=== PATIENT | female | born 1960 | race Caucasian/White ===

== ENCOUNTER → 2020-04-27 08:52 | Outpatient (CLI) | payer BC, SELFPAY ==
--- NOTE | ~2020-04-27 | MR_ITS ---
EXAMINATION: MR brain/brain stem wo/w con DATE: 04/27/2020 09:43 INDICATION: Headaches TECHNIQUE: Magnetic resonance imaging (MRI) of the brain and brainstem was performed . without and wi th 13 mL Multihance intravenous contrast. Sequences included sagittal and axial T1-weighted SE, axial diffusion-weighted FS SE, axial T2*-weighted GRE, axial T2-weighted FLAIR, and axial T2-weighted FSE . Postcontrast axial and coronal T1-weighted SE was obtained. Apparent diffusion coefficient (ADC) ma ps were created. COMPARISON: None. FINDINGS: There are no areas of restricted diffusion to suggest acute infarction. No intracranial hemorrhage or abnormal intracranial mass lesion. There are no intraparenchymal signal abnormalities seen on the ot her pulse sequences. The ventricles are symmetric and normal in size. There are no abnormal extra-axi al fluid collections. Flow voids are seen in the cerebral arteries on the T2-weighted sequences consi stent with their expected patency. The basilar and bilateral vertebral arteries appear diminutive and there appears be supply to the larger caliber bilateral posterior cerebral arteries via and artery a rising from the left internal carotid artery at the carotid siphon more proximal than the normal loca tion of the takeoff of the posterior communicating artery suggesting this could represent collateral flow via a residual trigeminal artery. Mild mucoperiosteal thickening in the bilateral ethmoid sinuse s. Changes of bilateral intraocular lens replacement. Visualized orbits and soft tissues are unremark able. There are no areas of abnormal enhancement on the post contrast images. IMPRESSION: 1. Normal brain. No acute intracranial process. 2. 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 Could consider CT angiogram for more definitive determination as clinically indicated. Reviewed, dictated and finalized at location A. R PRINT OPERATOR IMPRESSION: 1. Normal brain. No acute intracranial process. 2. Variant cerebral artery anatomy with diminutive basilar and bilateral verteb ral arteries with collateral supply to the posterior circulation appearing to o ccur via a likely residual left trigeminal artery. Could consider CT angiogram for more definitive determination as clinically indicated.
[2020-04-27 09:31] LABS: Estimated Glomerular Filt Rate > 60
== END ==
PROVIDERS: Visit Provider Nurse Practitioner Family
DX: R51.9 Headache, unspecified (principal)
CPT/HCPCS: 70553; A9577

== ENCOUNTER → 2020-05-25 11:54 | Outpatient (CLI) | payer BC, SELFPAY ==
--- NOTE | ~2020-05-25 | US_ITS ---
EXAMINATION: US carotid duplex BI DATE: 05/25/2020 12:24 INDICATION: Headaches. Diminutive vertebral and bilateral vertebral arteries on prior MRI. TECHNIQUE: Grayscale, color Doppler, and pulsed Doppler images of the cervical carotid arteries were obtained. The degree of vessel stenosis is placed in one of the following categories: normal, <50%, 5 0-69%, >=70% but less than near-occlusion, near-occlusion, or total occlusion. Note that percent sten osis relative to normal distal artery lumen diameter is indirectly measured from velocity measurement s as described by Cuong, et al. Radiology 2003; [id number]:[id number]. COMPARISON: None. FINDINGS: RIGHT: The right common carotid artery (CCA) peak systolic velocity (PSV) is 93 cm/s. The right internal car otid artery (ICA) PSV is 57 cm/s. The right ICA end-diastolic velocity (EDV) is 14 cm/s. The right IC A/CCA PSV ratio is 1.1. Grayscale and color Doppler images yield an estimate of <50% diameter reducti on from plaque in the ICA. The external carotid artery (ECA) PSV is 124 cm/s. There is antegrade flow in the right vertebral artery. LEFT: The left CCA PSV is 80 cm/s. The left ICA PSV is 103 cm/s. The left ICA EDV is 36 cm/s. The left ICA/ CCA PSV ratio is 1.4. Grayscale and color Doppler images yield an estimate of <50% diameter reduction from plaque in the ICA. The ECA PSV is 102 cm/s. There is antegrade flow in the left vertebral arter y. IMPRESSION: 1. <50% stenosis in the right internal carotid artery. 2. <50% stenosis in the left internal carotid artery. Reviewed, dictated and finalized at location B.
--- NOTE | ~2020-05-25 | MR_ITS ---
EXAMINATION: MR orbits face neck wo con DATE: 05/25/2020 12:50 INDICATION: Headache. TECHNIQUE: Magnetic resonance imaging (MRI) of the neck was performed without intravenous contrast. S equences included axial and coronal T1-weighted FSE and STIR FSE and sagittal T1-weighted FSE. COMPARISON: Brain MRI 04/27/2020 FINDINGS: There are no pathologically enlarged lymph nodes. The pharyngeal mucosal space is normal. T here is no abnormal mass. There is mild cervical spondylosis. IMPRESSION: 1. No etiology for the patient's symptoms. Reviewed, dictated and finalized at location A.
== END ==
PROVIDERS: PCP Pediatrics; Visit Provider Nurse Practitioner Family
DX: R51.9 Headache, unspecified (principal); I65.23 Occlusion and stenosis of bilateral carotid arteries
CPT/HCPCS: 70540; 93880

== ENCOUNTER → 2021-01-09 08:12 | Outpatient (CLI) | payer BC, SELFPAY ==
--- NOTE | ~2021-01-09 | MR_ITS ---
EXAMINATION: MR knee RT wo con DATE: 01/09/2021 08:52 INDICATION: 6 months of worsening generalized right knee pain, swelling and difficulty with walking. TECHNIQUE: Magnetic resonance imaging (MRI) of the right knee was performed without intravenous contr ast. Sequences included coronal PD-weighted FSE, coronal PD-weighted FS FSE, sagittal T2-weighted FS E, sagittal PD-weighted FS FSE and axial PD weighted fat saturated FSE. COMPARISON: None. FINDINGS: Medial compartment: Diffuse subtle increased signal throughout the body and posterior horn of the medial meniscus which d oes not unambiguously contact the articular surface to suggest meniscal tear but which would be consi stent with mucoid degeneration. Articular cartilage is normal. Lateral compartment: Longitudinal horizontal tear plane extending to the superior articular surface at the posterior horn and posterior body of the lateral meniscus. Articular cartilage is normal. Patellofemoral compartment: Deep chondral ulceration involving the cephalad half of the patellar apical ridge and supralateral as pect of the medial patellar facet with minimal underlying cortical irregularity. More prominent corti iona irregularity with small central subchondral osteophyte at the site of additional deep chondral ul ceration at the inferior aspect of the medial trochlea. Ligaments and tendons: Anterior and posterior cruciate ligaments are normal. The fibular collateral ligament complex is norm al. Mild thickening without significant increase similar surrounding edema at the proximal medial col lateral ligament likely scarring related to chronic sprain. The extensor mechanism is normal. The vis ualized medial and lateral hamstring tendons as well as the iliotibial band are normal. Fluid: And very small right knee joint effusion with minimal increased fluid at the suprapatellar pouch and posterior recesses including the popliteal recess. No loose osteochondral bodies identified. Osseous/other: Normal marrow signal. No fracture or pathologic marrow replacing process. There is increased fluid si gnal at the superficial suprapatellar fat pad which can be seen with fat pad impingement syndrome. IMPRESSION: 1. Lateral meniscal tear. 2. Patellofemoral osteoarthritis with regions of high-grade chondromalacia at both the patellar apica l ridge, medial facet and medial trochlea. 3. Edema in the superficial suprapatellar fat pad which can be seen with fat pad impingement syndrome . 2. Reviewed, dictated and finalized at location A. IMPRESSION: 1. Lateral meniscal tear. 2. Patellofemoral osteoarthritis with regions of high-grade chondromalacia at b oth the patellar apical ridge, medial facet and medial trochlea. 3. Edema in the superficial suprapatellar fat pad which can be seen with fat pa d impingement syndrome. 2.
== END ==
PROVIDERS: PCP Pediatrics; Visit Provider Nurse Practitioner Adult Health
DX: S83.281A Other tear of lateral meniscus, current injury, right knee, initial encounter (principal); X58.XXXA Exposure to other specified factors, initial encounter; M17.11 Unilateral primary osteoarthritis, right knee; R60.0 Localized edema
CPT/HCPCS: 73721

== ENCOUNTER → 2021-03-23 11:22 | Outpatient (CLI) | payer BC, SELFPAY ==
--- NOTE | ~2021-03-23 | XR_ITS ---
EXAMINATION: XR wrist RT min 3V DATE: 03/23/2021 11:43 INDICATION: Right wrist pain. TECHNIQUE: 4 views of right wrist were obtained. COMPARISON: None. FINDINGS: Bone alignment is normal. No fracture. There is mild osteoarthritis of triscaphe joint and first carpometacarpal joint. There is mild osteoarthritis of lunate-hamate joint. IMPRESSION: 1. Mild polyarticular osteoarthritis. Reviewed, dictated and finalized at location B. ER PACKER
== END ==
PROVIDERS: PCP Pediatrics; Visit Provider Pediatrics
DX: M19.031 Primary osteoarthritis, right wrist (principal); R51.9 Headache, unspecified; F32.A Depression, unspecified; E53.8 Deficiency of other specified B group vitamins; E55.9 Vitamin D deficiency, unspecified; M25.461 Effusion, right knee
CPT/HCPCS: 73110